=== PATIENT | female | born 1980 | race Caucasian/White ===

== ENCOUNTER 2017-03-06 05:34 | Inpatient (IN) | payer OTHER ==
[~2017-03-06] VITALS: Ht 172.7 cm; Wt 65.3 kg
[~2017-03-06 05:34] MED LIST: CHOL5000 PO; FERR159T3 PO
[2017-03-06] MEDS ORDERED: LACTATED RINGERS 1,000 ML IV SCH (06:07)
[2017-03-06 06:56] LABS: HCG UR OBC PASS
[2017-03-06] MEDS ORDERED: SCOPOLAMINE PATCH, 1.5MG PATCH.TD72 TD ONE (07:07)
[2017-03-06] MEDS ORDERED: FENTANYL PF 250 MCG/5ML ONE (07:21)
[2017-03-06] MEDS ORDERED: MIDAZOLAM 1 MG/ML, 2ML ONE (07:21)
[2017-03-06] MEDS ORDERED: SILVER NITRATE STICK TP ONE (07:23)
[2017-03-06] MEDS ORDERED: BUPIVACAINE/PF-EPI 0.25% 1:200K ONE (07:24)
[2017-03-06] MEDS ORDERED: HYDROcodone/APAP 7.5-325MG/15ML UDC PO PRN (07:30)
[2017-03-06] MEDS ORDERED: MEPERIDINE/PF 25MG/0.5ML IVPush PRN (07:30)
[2017-03-06] MEDS ORDERED: ONDANSETRON 2MG/ML, 2ML IVPush PRN (07:30)
[2017-03-06] MEDS ORDERED: HYDROmorphone 1 MG/ML, 1ML IV PRN (07:30)
[2017-03-06] MEDS ORDERED: MIDAZOLAM 1 MG/ML, 2ML IV PRN (07:30)
[2017-03-06] MEDS ORDERED: PROMETHAZINE 25 MG/ML, 1ML IV PRN (07:30)
[2017-03-06] MEDS ORDERED: ACETAMINOPHEN 325 MG TABLET PO PRN (07:30)
[2017-03-06] MEDS ORDERED: CEFAZOLIN 1,000 MG ONE (07:36)
[2017-03-06] MEDS ORDERED: KETOROLAC 30 MG/1 ML ONE (07:36)
[2017-03-06] MEDS ORDERED: DEXAMETHASONE 4 MG/ML, 1ML ONE (07:36)
[2017-03-06] MEDS ORDERED: ROCURONIUM 10 MG/ML ONE (07:36)
[2017-03-06] MEDS ORDERED: ONDANSETRON 2MG/ML, 2ML ONE (07:36)
[2017-03-06] MEDS ORDERED: PROPOFOL 10 MG/ML, 20ML ONE (07:36)
[2017-03-06] MEDS ORDERED: FENTANYL PF 100 MCG/2ML ONE (09:25)
[2017-03-06] MEDS ORDERED: ACETAMINOPHEN 325 MG TABLET ONE (09:25)
[2017-03-06] MEDS ORDERED: ACETAMINOPHEN 650 MG/20.3 ML UDC ONE (09:25)
[2017-03-06] MEDS ORDERED: OXYcodone 5 MG/5 ML ORAL.SOL UDC ONE ×2 (09:25→09:57)
[2017-03-06] MEDS: OXYcodone 5 MG/5 ML ORAL.SOL UDC PO PRN ×2 (09:30→10:00)
[2017-03-06] MEDS: FENTANYL PF 100 MCG/2ML IV PRN ×2 (09:30→09:45)
[2017-03-06] MEDS ORDERED: HYDROmorphone 2 MG/ML, 1ML IV PRN (12:30)
[2017-03-06] MEDS: D5%-LACTATED RINGERS 1,000 ML IV SCH ×3 (12:30→23:16)
[2017-03-06] MEDS ORDERED: INSTRUCTION SEE COMMENTS XX PRN (12:30)
[2017-03-06] MEDS ORDERED: ONDANSETRON 2MG/ML, 2ML IV PRN (12:30)
[2017-03-06 15:33] VITALS: BP 101/56
[2017-03-06] MEDS: CEFAZOLIN PMX 1GM/50ML 50 ML IVPB SCH ×2 (16:07→23:16)
[2017-03-06] MEDS: OXYcodone/APAP 5/325MG TABLET PO PRN (16:07)
[2017-03-06 19:38] VITALS: BP 108/66
[2017-03-06] MEDS: SENNA/DOCUSATE TABLET PO SCH (20:53)
[2017-03-06 23:16] VITALS: BP 98/60
[2017-03-07 04:00] VITALS: BP 103/58
[2017-03-07] MEDS: OXYcodone/APAP 5/325MG TABLET PO PRN ×3 (06:18→18:21)
[2017-03-07 08:58] VITALS: BP 115/76
[2017-03-07] MEDS: SENNA/DOCUSATE TABLET PO SCH (10:13)
[2017-03-07] MEDS: D5%-LACTATED RINGERS 1,000 ML IV SCH ×3 (10:53→22:43)
[2017-03-07 13:37] VITALS: BP 110/70
[2017-03-07 19:21] VITALS: BP 106/68
[2017-03-08 02:54] VITALS: BP 107/70
[2017-03-08] MEDS: OXYcodone/APAP 5/325MG TABLET PO PRN (07:59)
[2017-03-08 08:00] VITALS: BP 113/59
[2017-03-08 08:55] VITALS: BP 102/66
[2017-03-08 12:57] VITALS: BP 95/55
== END 2017-03-08 13:30 | disposition home or self-care (01) | DRG 742 ==
LOC: ORIP 05:34 → 4NOR 10:45
PROVIDERS: ADMIT Obstetrics & Gynecology; ATTEND Obstetrics & Gynecology
PROC: 0UT70ZZ Resection of Bilateral Fallopian Tubes, Open Approach (ICD-10-PCS; 2017-03-06)
PROC: 0UT00ZZ Resection of Right Ovary, Open Approach (ICD-10-PCS; 2017-03-06)
PROC: 0UT90ZZ Resection of Uterus, Open Approach (ICD-10-PCS; principal; 2017-03-06 07:30)
DX: N92.0 Excessive and frequent menstruation with regular cycle (principal); K56.7 Ileus, unspecified; N94.10 Unspecified dyspareunia; N94.6 Dysmenorrhea, unspecified; Z80.49 Family history of malignant neoplasm of other genital organs; Z82.49 Family history of ischemic heart disease and other diseases of the circulatory system; Z86.14 Personal history of Methicillin resistant Staphylococcus aureus infection
CPT/HCPCS: 36415; 81025; 85014; 85018; 86850; 86900; 88307; J0690; J1100; J1885; J2250; J2405; J2704; J3010; C1765; J7120; J7121